=== PATIENT | male | born 1975 | race Asian ===

== ENCOUNTER 2021-06-16 12:34 | Inpatient (IN) | payer OTHER ==
[2021-06-16 14:35] LABS: BASO % 0.6 % (0-2.0); EOS % 3.6 % (0-4.5); HEMATOCRIT 43.7 % (35.4-49); HEMOGLOBIN 14.1 GM/dL (11.7-16.9); LYMPH % 21.7 % (8-40); MCH 22.5 pg (25.7-33.7); MCHC 32.4 g/dl (32.0-35.9); MEAN CELL VOLUME 69.7 fl (80-96); MEAN PLT VOLUME 8.1 fl (7.5-11.1); MONO % 11.4 % (3.8-10.2); NEUT % 62.7 % (42.8-82.8); PLATELET COUNT 230 10^3/uL (134-434); RBC 6.27 M/mm3 (4.00-5.60); RDW 14.8 % (11.9-15.9); WHITE BLOOD COUNT 9.5 K/mm3 (4.0-10.0)
[2021-06-16 14:41] LABS: INR 1.09 (0.83-1.09); PROTHROMBIN TIME (PATIENT) 13.2 SEC (9.7-13.0)
[2021-06-16 14:44] LABS: ACTIVATED PTT 27.5 SECONDS (25.2-36.5); CHLORIDE 105 mmol/L (98-107); SODIUM 139 mmol/L (136-145)
[2021-06-16 14:46] LABS: CALCIUM 9.2 mg/dL (8.5-10.1)
[2021-06-16 14:47] LABS: ALBUMIN 3.8 g/dl (3.4-5.0); ANION GAP 9 MMOL/L (8-16); BLOOD UREA NITROGEN 18.3 mg/dL (7-18); CO2 25 mmol/L (21-32); GLUCOSE,RANDOM 107 mg/dL (74-106)
[2021-06-16 14:50] LABS: CREATININE 0.8 mg/dL (0.55-1.3); SGOT/AST 42 U/L (15-37)
[2021-06-16 14:51] LABS: BILIRUBIN,TOTAL 0.4 mg/dL (0.2-1); SGPT/ALT 70 U/L (13-61); TOT PROT 7.4 g/dl (6.4-8.2)
[2021-06-16 14:52] LABS: ALK PHOS 100 U/L (45-117)
[2021-06-16] MEDS ORDERED: VANCOMYCIN/WATER BAGS 1,250 MG/250 ML BAG IVPB ONE (16:16)
[2021-06-16] MEDS ORDERED: PIPERACILLIN/TAZOB 4.5 GM 4.5 GM in DEXTROSE 5%-WATER 100 ML IVPB ONE (16:16)
[2021-06-16] MEDS ORDERED: ASPIRIN 81 MG CHEWABLE TABLETS PO ONE (16:17)
[2021-06-16] MEDS ORDERED: ASPIRIN 81 MG CHEWABLE TABLETS ONE (16:23)
[2021-06-16] MEDS ORDERED: PIPERACILLIN/TAZOB 4.5 GM 4.5 GM/100 ML BAG IVPB ONE (16:24)
[2021-06-16] MEDS ORDERED: ENOXAPARIN NA (PORCINE) 40 MG/0.4 ML DISP.SYRIN SQ ONE (18:34)
[2021-06-16] MEDS: ENOXAPARIN NA (PORCINE) 40 MG/0.4 ML DISP.SYRIN SQ SCH (18:36)
[2021-06-16 22:06] VITALS: BMI 37.7
[2021-06-16] MEDS ORDERED: PNEUMOC 13-VAL CONJ-DIP CRM/PF 0.5 ML DISP.SYRIN IM ONE (22:29)
[2021-06-16] MEDS ORDERED: PNEUMOCOCCAL 23 VACCINE 0.5 ML VIAL IM ONE (23:00)
[2021-06-17] MEDS ORDERED: PIPERACILLIN/TAZOBACTAM 3.375 GM VIAL IVPB ONE ×3 (00:43→17:21)
[2021-06-17] MEDS ORDERED: DEXTROSE 5%-WATER - 50 ML IVPB ONE ×3 (00:43→17:21)
[2021-06-17] MEDS: PIPERACILLIN/TAZOB 3.375 GM 3.375 GM in DEXTROSE 5%-WATER - 50 ML IVPB SCH ×3 (01:12→17:52)
[2021-06-17 07:06] LABS: BASO % 0.9 % (0-2.0); EOS % 7.6 % (0-4.5); HEMATOCRIT 43.4 % (35.4-49); HEMOGLOBIN 13.9 GM/dL (11.7-16.9); LYMPH % 28.8 % (8-40); MCH 22.6 pg (25.7-33.7); MCHC 32.1 g/dl (32.0-35.9); MEAN CELL VOLUME 70.5 fl (80-96); MONO % 13.4 % (3.8-10.2); NEUT % 49.3 % (42.8-82.8); PLATELET COUNT 228 10^3/uL (134-434); RBC 6.16 M/mm3 (4.00-5.60); RDW 14.7 % (11.9-15.9); WHITE BLOOD COUNT 6.3 K/mm3 (4.0-10.0)
[2021-06-17 07:13] LABS: CHLORIDE 106 mmol/L (98-107); SODIUM 140 mmol/L (136-145)
[2021-06-17 07:28] LABS: CALCIUM 8.8 mg/dL (8.5-10.1)
[2021-06-17 07:29] LABS: ANION GAP 7 MMOL/L (8-16); CO2 27 mmol/L (21-32); GLUCOSE,RANDOM 123 mg/dL (74-106); MAGNESIUM 2.5 mg/dL (1.8-2.4)
[2021-06-17 07:32] LABS: CHOLESTEROL 203 mg/dL (50-200); CREATININE 0.9 mg/dL (0.55-1.3); TRIGLYCERIDES 565 mg/dL (0-150)
[2021-06-17 07:33] LABS: LDL CHOLESTEROL (ONLY SJRH) 97 mg/dL (5-100)
[2021-06-17 07:36] LABS: HDL CHOLESTEROL 30 mg/dL (40-60)
[2021-06-17] MEDS: ASPIRIN COATED 81 MG TABLET.EC PO SCH (10:39)
[2021-06-17] MEDS: ENOXAPARIN NA (PORCINE) 40 MG/0.4 ML DISP.SYRIN SQ SCH (10:39)
[2021-06-17] MEDS: ACETAMINOPHEN 325 MG TABLET (FP) PO PRN ×2 (13:44→22:10)
[2021-06-17] MEDS: ROSUVASTATIN CA 10 MG TABLET (FP) PO SCH (22:10)
[2021-06-18] MEDS ORDERED: PIPERACILLIN/TAZOBACTAM 3.375 GM VIAL IVPB ONE ×2 (00:36→09:07)
[2021-06-18] MEDS ORDERED: DEXTROSE 5%-WATER - 50 ML IVPB ONE ×2 (00:37→09:07)
[2021-06-18] MEDS: PIPERACILLIN/TAZOB 3.375 GM 3.375 GM in DEXTROSE 5%-WATER - 50 ML IVPB SCH ×5 (01:30→10:41)
[2021-06-18 07:12] LABS: BASO % 0.9 % (0-2.0); HEMATOCRIT 44.1 % (35.4-49); LYMPH % 34.4 % (8-40); MCH 22.3 pg (25.7-33.7); MCHC 31.7 g/dl (32.0-35.9); MEAN CELL VOLUME 70.4 fl (80-96); MEAN PLT VOLUME 7.9 fl (7.5-11.1); MONO % 10.1 % (3.8-10.2); NEUT % 44.6 % (42.8-82.8); PLATELET COUNT 234 10^3/uL (134-434); RBC 6.26 M/mm3 (4.00-5.60); RDW 14.6 % (11.9-15.9); WHITE BLOOD COUNT 6.4 K/mm3 (4.0-10.0)
[2021-06-18 07:28] LABS: BLOOD UREA NITROGEN 18.2 mg/dL (7-18); CALCIUM 8.9 mg/dL (8.5-10.1)
[2021-06-18 07:32] LABS: CREATININE 0.8 mg/dL (0.55-1.3)
[2021-06-18] MEDS: ASPIRIN COATED 81 MG TABLET.EC PO SCH (09:38)
[2021-06-18] MEDS: ENOXAPARIN NA (PORCINE) 40 MG/0.4 ML DISP.SYRIN SQ SCH (09:38)
[2021-06-18 10:43] LABS: ANISOCYTOSIS 2+; MACROCYTOSIS 0; PLATELET ESTIMATE NORMAL
[2021-06-18] MEDS: ACETAMINOPHEN 325 MG TABLET (FP) PO PRN ×2 (13:54→21:17)
[2021-06-18] MEDS: ROSUVASTATIN CA 10 MG TABLET (FP) PO SCH (21:17)
[2021-06-19] MEDS ORDERED: REGADENOSON 0.4 MG/5 ML PRE-FILLED SYRINGE IVPUSH ONE ×3 (09:26→10:00)
[2021-06-19] MEDS: ENOXAPARIN NA (PORCINE) 40 MG/0.4 ML DISP.SYRIN SQ SCH (12:44)
[2021-06-19] MEDS: ACETAMINOPHEN 325 MG TABLET (FP) PO PRN (12:44)
[2021-06-19] MEDS: ASPIRIN COATED 81 MG TABLET.EC PO SCH (12:44)
[2021-06-19] MEDS: CEFAZOLIN 2 GM/D5W 2 GM/50 ML ML IVPB SCH ×2 (16:50→18:34)
[2021-06-19] MEDS ORDERED: ACETAMINOPHEN/CAFFEINE/BUTALBITAL 1 TAB PO ONE (20:10)
[2021-06-19] MEDS: ROSUVASTATIN CA 10 MG TABLET (FP) PO SCH (21:13)
[2021-06-20] MEDS: CEFAZOLIN 2 GM/D5W 2 GM/50 ML ML IVPB SCH ×2 (01:03→09:53)
[2021-06-20] MEDS: ENOXAPARIN NA (PORCINE) 40 MG/0.4 ML DISP.SYRIN SQ SCH (09:52)
[2021-06-20] MEDS: ASPIRIN COATED 81 MG TABLET.EC PO SCH (09:52)
[2021-06-20 14:12] VITALS: BP 144/79; PULSE 95; TEMP 98.3
== END 2021-06-20 15:36 | disposition home or self-care (01) | DRG 383 ==
LOC: JER 12:34 → JERBED 16:20 → J4S 20:01
PROVIDERS: ADMIT Internal Medicine; ATTEND Family Medicine
DX: L03.115 Cellulitis of right lower limb (principal); E78.5 Hyperlipidemia, unspecified; R06.09 Other forms of dyspnea; E78.1 Pure hyperglyceridemia; E66.9 Obesity, unspecified; Z68.37 Body mass index [BMI] 37.0-37.9, adult; R73.03 Prediabetes; M79.604 Pain in right leg; R07.81 Pleurodynia; K76.0 Fatty (change of) liver, not elsewhere classified
CPT/HCPCS: 36415; 71045-TC-FY; 71260-TC; 78452-TC; 80048; 80053; 80061; 82550; 82553; 82962; 83036; 83721; 83735; 84443; 84484; 85025; 85379; 85610; 85730; 90732; 93005; 93010; 93017; 93306-TC; 93971-TC; 99285-25; A9502; C9803; G0009; J2785; Q9967; U0003; U0005